=== PATIENT | male | born 1975 | race Caucasian/White ===

== ENCOUNTER 2019-08-07 08:50 | Emergency (ER) | payer MEDICAID, OTHER ==
[~2019-08-07] VITALS: Ht 172.7 cm; Wt 130.9 kg
[~2019-08-07 08:50] MED LIST: ALPR-624 PO; METF1000 PO; PARO30TA73 PO
[2019-08-07 08:57] VITALS: BP 131/89
[2019-08-07] MEDS ORDERED: ketorolac trometh inj. 60 MG/2 ML VIAL IM ONE (09:25)
[2019-08-07] MEDS ORDERED: NAPR-56 PO (09:27)
[2019-08-07] MEDS ORDERED: CYCL-1 PO (09:27)
== END 2019-08-07 09:55 | disposition home or self-care (01) ==
LOC: ER 08:51
DX: S39.012A Strain of muscle, fascia and tendon of lower back, initial encounter (principal); M54.41 Lumbago with sciatica, right side; K21.9 Gastro-esophageal reflux disease without esophagitis; E11.9 Type 2 diabetes mellitus without complications; Z79.84 Long term (current) use of oral hypoglycemic drugs; Z79.899 Other long term (current) drug therapy; V89.2XXA Person injured in unspecified motor-vehicle accident, traffic, initial encounter; Y93.89 Activity, other specified; Y92.488 Other paved roadways as the place of occurrence of the external cause; Y99.8 Other external cause status
CPT/HCPCS: 96372; 99283; J1885

== ENCOUNTER 2019-09-15 18:21 | Inpatient (IN) | payer MEDICAID, OTHER ==
[~2019-09-15] VITALS: Ht 172.7 cm; Wt 127.3 kg
[~2019-09-15 18:21] MED LIST changes: +CYCL-1 PO
[2019-09-15 19:28] LABS: CLARITY,URINE CLEAR (Clear); COLOR,URINE YELLOW (Yellow); GLUCOSE, URINE >=1000 mg/dl (Neg); KETONES,URINE NEGATIVE (Neg); LEUKOCYTE ESTERASE ,URINE NEGATIVE (Neg); NITRITES, URINE NEGATIVE (Neg); OCCULT BLOOD,URINE TRACE-INTACT (Neg); PROTEIN,URINE NEGATIVE (Neg); UROBILINOGEN,URINE 0.2 E.U/dL (0.2-1.0)
[2019-09-15 19:32] LABS: UA COLLECTION TYPE CLN CATCH MIDSTREAM
[2019-09-15 19:33] LABS: BACTERIA,URINE NONE SEEN /HPF (Neg); RBC,URINE 0-2 /HPF (0-2); SQUAMOUS EPITHELIAL CELL,UR FEW /LPF (FEW)
[2019-09-15] MEDS ORDERED: normal saline 1000ML IV soln IV ONE (20:30)
[2019-09-15] MEDS ORDERED: CefTRIAXone 2gm/D5W 50ml 50 ML IV ONE (20:30)
[2019-09-15] MEDS ORDERED: ibuprofen tablet 400 MG TABLET PO ONE (20:30)
[2019-09-15 20:33] LABS: BASOPHILS # (AUTO) 0.2 X10'3 (0-0.2); BASOPHILS % (AUTO) 1.1 % (0-1); EOSINOPHILS % (AUTO) 0.2 % (0-6); HEMATOCRIT 45.3 % (42.0-52.0); HEMOGLOBIN 15.8 g/dl (14.0-17.9); LYMPHOCYTES % (AUTO) 14.6 % (21-51); MEAN CORPUSCULAR HEMOGLOBIN 29.9 PG (27.0-31.0); MEAN CORPUSCULAR HGB CONC 34.8 g/dL (33.0-36.5); MEAN CORPUSCULAR VOLUME 85.8 FL (78-98); MONOCYTES # (AUTO) 2.7 X10'3 (0-0.9); MONOCYTES % (AUTO) 13.4 % (2-12); NEUTROPHILS # (AUTO) 14.2 X10'3 (1.8-7.7); NEUTROPHILS % (AUTO) 70.7 % (42-75); PLATELET COUNT 162 X10'3 (140-440); RED BLOOD COUNT 5.28 X10'6 (4.70-6.10); RED CELL DISTRIBUTION WIDTH 14.5 % (11.5-14.5); WHITE BLOOD COUNT 20.1 X10'3 (4.5-11.0)
[2019-09-15 20:51] LABS: ALANINE AMINOTRANSFERASE 70 U/L (12-78); ALBUMIN 3.8 G/DL (3.4-5.0); ALBUMIN/GLOBULIN RATIO 0.9 (1.1-1.5); ALKALINE PHOSPHATASE 122 IU/L (46-116); ANION GAP 11 (8-16); ASPARTATE AMINO TRANSFERASE 23 U/L (10-37); BLOOD UREA NITROGEN 10 MG/DL (7-18); BUN/CREATININE RATIO 9.5 (5.4-32.0); CALCIUM 8.9 MG/DL (8.5-10.1); CHLORIDE 97 MMOL/L (99-107); CREATININE 1.05 MG/DL (0.60-1.10); GLUCOSE 365 MG/DL (70-104); POTASSIUM 3.8 MMOL/L (3.5-5.1); SODIUM 133 MMOL/L (135-145); TOTAL CARBON DIOXIDE 25.4 MMOL/L (24-32); eGFR 77 ML/MIN
[2019-09-15 21:03] LABS: PARTIAL THROMBOPLASTIN TIME 29 SECONDS (22-32)
[2019-09-15] MEDS ORDERED: METF500T PO (21:22)
[2019-09-15] MEDS ORDERED: CELE-85 PO (21:22)
[2019-09-15] MEDS ORDERED: VALA100027 PO (21:22)
[2019-09-15] MEDS ORDERED: META800T87 PO (21:22)
[2019-09-15] MEDS ORDERED: LISI-600 PO (21:22)
[2019-09-15] MEDS ORDERED: DICL1ADH18 TOP (21:22)
--- NOTE | 2019-09-15 21:22 | NUR ---
ALTHOUGH PT EXTERNAL MED HX HAS MORE MEDICATIONS, PT STATES MANY RX HE RECENTLY FILLED HE ISNT TAKING. THEREFORE, I DID NOT INCLUDE THEM CURRENT MEDICATIONS PT IS TAKING.
[2019-09-15 21:47] LABS: PLATELET ESTIMATE NORMAL; TOTAL CELLS COUNTED 100
[2019-09-15] MEDS ORDERED: acetaminophen 325mg tablet PO PRN (23:20)
[2019-09-15] MEDS ORDERED: glucagon, human recombinant 1mg kit SUBCUT PRN (23:20)
[2019-09-15] MEDS ORDERED: HYDROcodone/acetaminophen 5mg/325mg tablet PO PRN (23:20)
[2019-09-15] MEDS ORDERED: MESSAGE TO PHARMACY PO ONE (23:20)
[2019-09-15] MEDS ORDERED: magnesium hydroxide 30ml (MOM) UD suspension PO PRN (23:20)
[2019-09-15] MEDS ORDERED: dextrose 50%-water 50ml dispensing syringe IV PRN ×2 (23:20)
[2019-09-15] MEDS ORDERED: ondansetron/PF 4mg/2ml inj IV PRN (23:20)
[2019-09-15] MEDS ORDERED: mag hydrox/Alum hydrox/simeth 30ml oral suspension PO PRN (23:20)
[2019-09-15] MEDS ORDERED: cyclobenzaprine 10mg tablet PO PRN (23:20)
[2019-09-15] MEDS ORDERED: dextrose ORAL solution 15 GM/59 ML bottle PO PRN ×2 (23:20)
--- NOTE | 2019-09-16 01:20 | NUR ---
Patient in room ED 6. I have received report from Martina Esqueda in the Er and had the opportunity to ask questions and will assume patient care upon arrival to the floor. Addendum: 09/16/19 at 0148 by Bia Chaidez RN Amended: Links added.
--- NOTE | 2019-09-16 02:10 | NUR ---
pt arrived to the floor from the Er and vitals vss and mRSA swab done.
[2019-09-16 02:15] VITALS: BP 148/92
[2019-09-16] MEDS: normal saline 1000ml 1,000 ML IV SCH ×2 (02:25→11:16)
--- NOTE | 2019-09-16 03:55 | NUR ---
order recieved from Dr Apple for 15 units of lantus for the pt. and given after this.
[2019-09-16] MEDS ORDERED: insulin glargine (Lantus) pen - multi-dose SQ ONE (04:10)
--- NOTE | 2019-09-16 05:00 | NUR ---
watching tv on right side no s&s of distress.
[2019-09-16 06:21] LABS: BASOPHILS % (AUTO) 0.3 % (0-1); EOSINOPHILS # (AUTO) 0.1 X10'3 (0-0.9); EOSINOPHILS % (AUTO) 0.6 % (0-6); HEMATOCRIT 39.1 % (42.0-52.0); HEMOGLOBIN 13.4 g/dl (14.0-17.9); LYMPHOCYTES # (AUTO) 1.9 X10'3 (1.1-4.8); LYMPHOCYTES % (AUTO) 14.9 % (21-51); MEAN CORPUSCULAR HEMOGLOBIN 29.6 PG (27.0-31.0); MEAN CORPUSCULAR HGB CONC 34.2 g/dL (33.0-36.5); MEAN CORPUSCULAR VOLUME 86.3 FL (78-98); MEAN PLATELET VOLUME 8.1 FL (7.4-10.4); MONOCYTES # (AUTO) 1.6 X10'3 (0-0.9); MONOCYTES % (AUTO) 12.1 % (2-12); NEUTROPHILS # (AUTO) 9.3 X10'3 (1.8-7.7); NEUTROPHILS % (AUTO) 72.1 % (42-75); PLATELET COUNT 122 X10'3 (140-440); RED BLOOD COUNT 4.53 X10'6 (4.70-6.10); RED CELL DISTRIBUTION WIDTH 14.7 % (11.5-14.5); WHITE BLOOD COUNT 12.9 X10'3 (4.5-11.0)
--- NOTE | 2019-09-16 06:30 | NUR ---
Patient in room [facility]. I have received report from Bia RIVERA and had the opportunity to ask questions and assume patient care.
[2019-09-16 06:42] LABS: ALANINE AMINOTRANSFERASE 52 U/L (12-78); ALBUMIN 2.9 G/DL (3.4-5.0); ALBUMIN/GLOBULIN RATIO 0.8 (1.1-1.5); ALKALINE PHOSPHATASE 101 IU/L (46-116); ANION GAP 7 (8-16); ASPARTATE AMINO TRANSFERASE 16 U/L (10-37); BILIRUBIN,TOTAL 0.6 MG/DL (0.1-1.0); BLOOD UREA NITROGEN 10 MG/DL (7-18); BUN/CREATININE RATIO 11.2 (5.4-32.0); CALCIUM 7.7 MG/DL (8.5-10.1); CHLORIDE 103 MMOL/L (99-107); CREATININE 0.89 MG/DL (0.60-1.10); GLUCOSE 361 MG/DL (70-104); POTASSIUM 3.8 MMOL/L (3.5-5.1); SODIUM 137 MMOL/L (135-145); TOTAL CARBON DIOXIDE 27.4 MMOL/L (24-32); TOTAL PROTEIN 6.5 G/DL (6.4-8.2); eGFR > 90 ML/MIN
[2019-09-16 07:06] VITALS: BP 154/106
--- NOTE | 2019-09-16 07:07 | NUR ---
Problems reprioritized. Patient report given, questions answered & plan of care reviewed with Marcos Esqueda. Addendum: 09/16/19 at 0707 by Bia Chaidez RN Amended: Links added.
[2019-09-16] MEDS ORDERED: celeCOXIB 100mg capsule PO SCH (08:00)
[2019-09-16] MEDS ORDERED: heparin, porcine 5000 units/ml vial SQ SCH (08:00)
[2019-09-16] MEDS ORDERED: DICLOFENAC EPOLAMINE TOP SCH (08:00)
[2019-09-16] MEDS ORDERED: lisinopril 20mg tablet PO SCH (08:00)
[2019-09-16] MEDS: cyclobenzaprine 10mg tablet PO SCH ×2 (08:20→14:18)
[2019-09-16] MEDS: valacyclovir 500mg tablet PO SCH ×2 (08:23→14:18)
[2019-09-16] MEDS: insulin Lispro (HumaLOG) vial - multi-dose SQ SCH ×2 (09:11→14:14)
[2019-09-16] MEDS ORDERED: metoprolol succinate 25mg (24-HOUR) SR. Tablet PO SCH (09:20)
[2019-09-16 11:00] VITALS: BP 141/92
[2019-09-16] MEDS ORDERED: iohexol 300mg/ml 100ml inj. ONE (14:40)
--- NOTE | 2019-09-16 15:58 | NUR ---
DM consult: Pt with A1c 10.9. Attempted bedside visit however pt unavailable. Pt would benefit from DM education with referral to outpatient DM class prior to discharge. Will continue to follow. Addendum: 09/16/19 at [address] Amended: Links added.
[2019-09-16] MEDS ORDERED: METF-950 PO (16:20)
[2019-09-16] MEDS ORDERED: AMA1T PO (16:20)
[2019-09-16] MEDS ORDERED: CEFD300C3 PO (16:20)
[2019-09-16] MEDS ORDERED: SITA100T11 PO (16:20)
[2019-09-16] MEDS ORDERED: METO-395 PO (16:20)
--- NOTE | 2019-09-16 17:10 | NUR ---
Patient discharged at this time. Patient education was done with family in the room. patient expressed verbal understanding of medication changes and new medication instructions. Patient IV taken out at this time. Minimal bleeding at time IV was taken out. dressing was changed at this time. [place] was whole intact upon removal. Patient stated he had all belonging at time of discharge. Patient left on foot with tech down to private vehicle.
[2019-09-16] MEDS ORDERED: CefTRIAXone/D5W-Rocephin 1gm 50 ML IV SCH (20:00)
[2019-09-16] MEDS ORDERED: lactobacillus rhamnosus 10,000 MMU CELLS/CAPSULE PO SCH (20:00)
[2019-09-16] MEDS ORDERED: insulin glargine (Lantus) pen - multi-dose SQ SCH (21:00)
== END 2019-09-16 17:07 | disposition home or self-care (01) | DRG 463 ==
LOC: ER 18:22 → ED HOLD 23:17 → SUR 3N 09-16 02:15
PROVIDERS: ADMIT Internal Medicine; ATTEND Family Medicine
DX: N39.0 Urinary tract infection, site not specified (principal); E11.65 Type 2 diabetes mellitus with hyperglycemia; K76.0 Fatty (change of) liver, not elsewhere classified; E66.01 Morbid (severe) obesity due to excess calories; M19.90 Unspecified osteoarthritis, unspecified site; K21.9 Gastro-esophageal reflux disease without esophagitis; Z79.1 Long term (current) use of non-steroidal anti-inflammatories (NSAID); Z79.899 Other long term (current) drug therapy; Z68.41 Body mass index [BMI] 40.0-44.9, adult
CPT/HCPCS: 36415; 71045; 74177; 80053; 81001; 82948; 83036; 83605; 84145; 85025; 85610; 85730; 87040; 87081; 87088; G0378; J0696; J1644; J1815; J7030; Q9967